=== PATIENT | female | born 1995 | race Caucasian/White ===

== ENCOUNTER 2019-06-20 05:19 | Inpatient (IN) | payer SELFPAY ==
[2019-06-19 12:27] LABS: Absolute Lymphocytes (CBC) 1.6 K/uL (0.7-4.9); Basophils % 0.2 % (0-1.3); Lymphocytes % 18.5 % (15.3-44.8); MPV 8.8 fL (7.6-11.3); RBC Red Blood Cell Count 3.75 M/uL (3.86-4.86)
[2019-06-19 12:29] LABS: Urine Appearance CLEAR; Urine Bilirubin NEGATIVE (NEG); Urine Blood NEGATIVE (NEG); Urine Color YELLOW; Urine Glucose NEGATIVE (NEG); Urine Protein NEGATIVE (NEG); Urine Urobilinogen 0.2 mg/dL (0.2-1.0)
[2019-06-19 13:05] LABS: Urine Bacteria NONE SEEN /HPF (<20); Urine RBC <5 /HPF (NONE SEEN)
[2019-06-19 13:06] LABS: Urine Culture Reflex Order NOT NEEDED
--- NOTE | 2019-06-19 14:09 | PREOPHP ---
Date of Admission: 06/20/2019 Ms. Lofton is a 24-year-old single female, 2, para 1-0-0-1, now at 39 weeks' gesta tion. She has been followed by me during this without complications other than a history o f low progesterone, was supplemented with Prometrium early in with a prior section . She will be admitted for repeat section secondary to term , prior secti on, and suspected cephalopelvic disproportion. Past Medical History: Please see record Family History: Please see record. Review of Systems: She reports no recent cough, cold, fever, or chills. No recent nausea or vomiting. She denies any b reast lumps or knots. She denies any bowel or bladder issues. has been active. Physical Examination: General: Reveals a pleasant female, in no apparent distress. Neck: Supple without adenopathy or thyromegaly. Lungs: Clear. Cardiac: Regular rate and rhythm without murmurs. Breasts: Not examined. Abdomen: Estimated weight of 7+ pounds. Fundal height of 36 cm and vertex palpated above the pubic bone. heart tones well heard. Extremities: No cyanosis, clubbing, or edema. Impression: Term , prior section. Plan: The patient will be admitted for repeat section. Risks and benefits are discussed. She has signed operative permit in my presence. BRI/ISAAC Voice ID: [id number]
[2019-06-19 21:07] LABS: RPR (Rapid Plasma Reagin) NON-REACT (NON-REACT)
[~2019-06-20 05:19] MED LIST: Ringers Lactate 1,000 ML IV PRN
[2019-06-20] MEDS ORDERED: NA CIT/CITRIC AC 30 ML ORAL UDC PO ONE (05:21)
[2019-06-20] MEDS ORDERED: FAMOTIDINE 20 MG/2 ML VIAL IV ONE (05:22)
[2019-06-20 05:56] VITALS: BMI 28.7
[2019-06-20] MEDS ORDERED: Ringers Lactate 1,000 ML IV SCH (06:00)
[2019-06-20] MEDS ORDERED: METOCLOPRAMIDE 10 MG/2mL INJ IV SCH (06:00)
[2019-06-20] MEDS ORDERED: CEFAZOLIN/SWI 2gm 2 GM/20 ML SYR IV SCH (06:30)
[2019-06-20] MEDS ORDERED: METHYLERGONOVINE 0.2MG/ML AMP IM ONE (07:25)
[2019-06-20] MEDS ORDERED: CARBOPROST TROME 250 MCG/ML IM ONE (07:25)
[2019-06-20] MEDS ORDERED: CARBOPROST TROME 250 MCG/ML IM PRN (08:35)
[2019-06-20] MEDS ORDERED: ONDANSETRON 4 MG (ODT) TAB PO PRN (08:35)
[2019-06-20] MEDS ORDERED: Oxycodone HCl/Acetaminophen 1 TAB TAB PO PRN (08:35)
[2019-06-20] MEDS ORDERED: METHYLERGONOVINE 0.2 MG TAB PO PRN (08:35)
[2019-06-20] MEDS ORDERED: METHYLERGONOVINE 0.2MG/ML AMP IM PRN (08:35)
[2019-06-20] MEDS ORDERED: KETOROLAC 30 MG/ML INJ IV PRN (08:35)
--- NOTE | 2019-06-20 08:40 | P.BOP ---
Preoperative diagnosis: 39 wk , prior , cpd Postoperative diagnosis: same, delivery viable male Primary procedure: Position Classification Specialist: Rosa Mane Estimated blood loss: 800ml Specimen: placenta Anesthesia: Spinal Drain(s): Urinary catheter Transferred to: Other (277) Condition: Good
[2019-06-20] MEDS ORDERED: FENTANYL CITR 250 MCG/5 ML ONE (09:29)
[2019-06-20] MEDS ORDERED: Phenylephrine HCl 10 MG/ML 1 ML VIAL ONE (09:29)
[2019-06-20] MEDS ORDERED: EPHEDRINE SULF 50 MG/ML VIAL ONE (09:29)
[2019-06-20] MEDS ORDERED: OXYTOCIN 10 UNIT/ML ML IV ONE (09:29)
[2019-06-20] MEDS ORDERED: MORPHINE SULFATE/PF 1 MG/ML (10 ML AMP) ONE (09:29)
[2019-06-20] MEDS ORDERED: NS 0.9% VIAL 20 ML ONE (09:29)
[2019-06-20] MEDS: OXYTOCIN/LR 20 UNIT/1,000 ML BAG IV SCH (17:00)
--- NOTE | 2019-06-20 23:18 | OP ---
Surgeon: Aaron Frederick MD Preoperative Diagnoses: A 39+ week , prior sections, cephalopelvic disproportion. Procedures: Spinal block anesthesia, repeat section, and delivery of a viable male . Postoperative Diagnoses: A 39+ week , prior sections, cephalopelvic disproportion. Description Of Procedure: After a satisfactory level of spinal block anesthesia was obtained and the patient had received 2 g of Ancef for antibiotic prophylaxis, a Pfannenstiel skin incision was made, carried down to the fascia, and the fascia was incised with a combination of sharp and blunt dissect ion. This was from the underlying rectus muscles. These were divided in the midline. Per itoneum entered. Vesicouterine peritoneum incised. Bladder flap was developed. A low-transverse ut erine incision was made. A 6-pound 7-ounce male infant, 6 and 7 was delivered with the aid of a posterior bladed forceps to elevate the vertex. The cord was milked toward the infant. Cord clamped, cut, and the infant placed in a warmer. Cord blood was obtained. The placenta was manuall y removed. The uterus was then exteriorized. The cervix was dilated from above with ring clamp, whi ch was passed from the operative field. The uterus was closed in 2 layers utilizing 0 Vicryl suture in a running unlocked fashion; second layer used to imbricate the first. The vesicouterine peritoneu m was reapproximated with running suture of 3-0 Vicryl. The uterus was returned to the peritoneal ca vity, which was cleaned of amniotic fluid, debris, and blood clot. The rectus muscles were approxima mechelle in midline with simple sutures of 0 Vicryl. Fascia was closed with running sutures of #1 Vicryl from either margin to the middle. The skin was closed with subcutaneous sutures of 3-0 Vicryl and a running subdermal suture of 3-0 Vicryl, and subcuticular suture of 4-0 Monocryl. The patient was jose luis en to recovery room with Gómez catheter in place and SCDs in place with sponge and needle counts jonah ect x2. [employer] Developer Surgeon: Mark Mane MD Anesthesia: Dr. Gallegos and a SILVIA. MPG/MODL Voice ID: [id number] Report ID: [id number]
[2019-06-21] MEDS: OXYTOCIN/LR 20 UNIT/1,000 ML BAG IV SCH (02:00)
[2019-06-21 04:43] LABS: Absolute Lymphocytes (CBC) 1.7 K/uL (0.7-4.9); Basophils % 0.6 % (0-1.3); Hematocrit 30.4 % (36.0-45.0); Lymphocytes % 14.8 % (15.3-44.8); MPV 8.9 fL (7.6-11.3)
--- NOTE | 2019-06-21 07:39 | P.PN ---
Date of Service: 06/21/19 S-No complaints O-Afeb, vs stable, bandage dry, abdomen soft, 09/27 post op h/h A-Satisfactory P-Ambulate, advance diet, d/c lou and IV. Probably home tomorrow.
[2019-06-21] MEDS: Oxycodone HCl/Acetaminophen 1 TAB TAB PO PRN ×3 (12:28→23:54)
[2019-06-21] MEDS: IBUPROFEN 400 MG TAB PO PRN (15:33)
[2019-06-21] MEDS ORDERED: IBUPROFEN 200 MG TAB PO ONE (15:49)
[2019-06-21 19:20] LABS: HBsAG Nonreactive (Nonreactive)
[2019-06-22] MEDS ORDERED: Oxycodone HCl/Acetaminophen 1 TAB TAB ONE (00:08)
[2019-06-22] MEDS: IBUPROFEN 400 MG TAB PO PRN (05:22)
[2019-06-22 10:49] VITALS: BP 107/73; TEMP 96.8
[2019-06-22] MEDS: Oxycodone HCl/Acetaminophen 1 TAB TAB PO PRN (10:50)
== END 2019-06-22 10:05 | disposition home or self-care (01) | DRG 788 ==
LOC: 2ND-WC 05:19
PROVIDERS: ADMIT Specialist; ATTEND Specialist
PROC: 10D00Z1 Extraction of Products of Conception, Low, Open Approach (ICD-10-PCS; principal; 2019-06-20 07:30)
DX: O34.211 Maternal care for low transverse scar from previous cesarean delivery (principal); Z3A.39 39 weeks gestation of pregnancy; Z37.0 Single live birth; O33.9 Maternal care for disproportion, unspecified
CPT/HCPCS: 36415; 81001; 85025; 86592; 86850; 86900; 86901; 87340; 88307; G0433; J0690; J2210; J2370; J2590; J2765; J3010